=== PATIENT | male | born 2005 | race Caucasian/White ===

== ENCOUNTER 2024-10-21 21:25 | Emergency (ER) | payer OTHER, SELFPAY ==
[2024-10-21 21:44] LABS: #Basophils Less than 0.03 10x3/uL (0.0-0.2); #Eosinophils Less than 0.03 10x3/uL (0.0-0.7); %Basophils 0.2 % (0.0-1.0); %Eosinophils 0.1 % (0.0-10.0); %Lymphocytes 16.3 % (28.0-48.0); %Monocytes 4.3 % (0.0-4.0); Hematocrit 47.5 % (42.0-52.0); Mean Corpuscular HGB CONC 35.8 g/dL (32.0-36.0); Mean Corpuscular Volume 80.9 fL (78.0-98.0); Mean Platelet Volume 12.6 fL (7.4-10.4); Platelet Count 149 10x3/uL (130-400); RBC Distribution Width 14.3 % (11.5-14.5); Red Blood Cell (RBC) Count 5.87 mill/uL (4.00-5.20)
[2024-10-21 22:05] LABS: ALT (SGPT) 19 U/L (8-55); AST (SGOT) 19 U/L (5-34); Albumin 4.9 g/dL (3.5-5.0); Alkaline Phosphatase 59 U/L (50-130); Anion Gap 16 mmol/L (10-20); BUN (Urea Nitrogen) 9 mg/dL (8.9-20.6); Calc. Creatinine Clearance 0 mL/min (70-130); Calcium 9.6 mg/dL (7.8-10.44); Carbon Dioxide 23 mmol/L (22-29); Chloride 105 mmol/L (98-107); Estimated GFR 108; Globulin 3.4 g/dL (2.4-3.5); Glucose 103 mg/dL (70-105); Potassium 3.5 mmol/L (3.5-5.1); Protein, Total 8.3 g/dL (6.0-8.3); Sodium 140 mmol/L (136-145)
[2024-10-21 22:11] LABS: Troponin I Less than 0.010 ng/mL (< 0.028)
[2024-10-22] MEDS ORDERED: Metoprolol Tartrate 5 MG (5 mL) VIAL ONE (00:44)
== END 2024-10-22 01:17 | disposition home or self-care (01) ==
LOC: ERS 21:25
DX: R00.2 Palpitations (principal); R00.0 Tachycardia, unspecified
CPT/HCPCS: 36415; 71045; 80053; 84443; 84484; 85025; 93005; 96374